=== PATIENT | female | born 1950 | race Two or more races ===

== ENCOUNTER 2021-03-22 18:29 | Emergency (ER) | payer SELFPAY ==
[~2021-03-22] VITALS: Ht 162.6 cm; Wt 70.8 kg
[2021-03-23] VITALS: BP 137/80
== END 2021-03-23 00:27 | disposition home or self-care (01) ==
LOC: EDSEX 18:29 → ER 18:29
DX: M54.2 Cervicalgia (principal); R51.9 Headache, unspecified; W19.XXXA Unspecified fall, initial encounter; Y93.89 Activity, other specified; Y92.89 Other specified places as the place of occurrence of the external cause; Y99.8 Other external cause status
CPT/HCPCS: 70450; 71045; 72125; 72170; 93005

== ENCOUNTER 2021-03-24 16:45 | Emergency (ER) | payer OTHER ==
[~2021-03-24] VITALS: Ht 172.7 cm; Wt 70.3 kg
[2021-03-24 21:01] VITALS: BP 107/65
== END 2021-03-24 22:42 | disposition home or self-care (01) ==
LOC: ER 16:45 → EDBD 16:45 → ER 22:42
DX: M79.604 Pain in right leg (principal); M79.605 Pain in left leg
CPT/HCPCS: 93925